=== PATIENT | female | born 1960 | race Caucasian/White ===

== ENCOUNTER 2017-07-28 15:41 | Observation (INO) | payer MEDICAID ==
[2017-07-28] MEDS ORDERED: Sodium Chloride 0.9% 1,000 ML IV STA ×2 (15:57→18:39)
[2017-07-28] MEDS ORDERED: Albuterol-Ipratrop 3 mg / 0.5 (3 ml) UD IH STA (15:59)
--- NOTE | 2017-07-28 16:01 | ED PDOC ---
Arrival/HPI - General Chief Complaint: Chest Pain Time Seen by Provider: 07/28/17 15:45 Historian: Patient, Family - History of Present Illness Narrative History of Present Illness (Text): 07/28/17 15:53 A 57 year old female, whose past medical history includes HLD and GERD, presents to the emergency department complaining of shortness of breath and chest tightness. Per family member, patient describes chest tightness as heavy. Notes also experiencing fever, chills, and cough 2 days ago. Patient denies any appetite changes or any other complaints at this time. PMD: Dr. Martinez Past Medical History - Provider Review Nursing Documentation Reviewed: Yes - Infectious Disease Hx of Infectious Diseases: None - Reproductive Menopause: Yes - Cardiac Hx Hypertension: Yes - Gastrointestinal Hx Gastroesophageal Reflux: Yes - Psychiatric Hx Substance Use: No - Anesthesia Hx Anesthesia Reactions: No Family/Social History - Physician Review Nursing Documentation Reviewed: Yes Family/Social History: No Known Family HX Smoking Status: Unknown If Ever Smoked Hx Alcohol Use: No Hx Substance Use: No Allergies/Home Meds Allergies/Adverse Reactions: Allergies No Known Allergies Allergy (Verified 12/09/16 13:00) Home Medications: Home Meds Medication Instructions Recorded Confirmed Aspirin [Ecotrin] 81 mg PO DAILY 12/09/16 07/28/17 Gemfibrozil 600 mg PO BID 12/09/16 07/28/17 Pantoprazole [Protonix] 40 mg PO DAILY 12/09/16 07/28/17 hydroCHLOROthiazide [Microzide] 12.5 mg PO DAILY 12/09/16 07/28/17 Cyanocobalamin [Vitamin B12] 1,000 mcg PO BID 07/28/17 07/28/17 Review of Systems - Physician Review All systems were reviewed & negative as marked: Yes - Review of Systems Constitutional: Fevers, Night Sweats Respiratory: SOB, Cough Cardiovascular: Other (chest tightness) Gastrointestinal: absent: Appetite Changes Physical Exam Vital Signs Reviewed: Yes Vital Signs Temp Pulse Resp BP Pulse Ox 07/28/17 17:58 99 H 16 126/82 100 07/28/17 15:58 98.2 F 110 H 16 139/91 H 100 Temperature: Afebrile Blood Pressure: Normal Pulse: Regular Respiratory Rate: Normal Appearance: Positive for: Well-Appearing Pain Distress: None Mental Status: Positive for: Alert and Oriented X 3 - Systems Exam Head: Present: Atraumatic, Normocephalic Pupils: Present: PERRL Extroacular Muscles: Present: EOMI Conjunctiva: Present: Normal Mouth: Present: Moist Mucous Membranes Neck: Present: Normal Range of Motion Respiratory/Chest: Present: Clear to Auscultation, Good Air Exchange. No: Respiratory Distress, Accessory Muscle Use Cardiovascular: Present: Regular Rate and Rhythm, Normal S1, S2. No: Murmurs Abdomen: Present: Normal Bowel Sounds. No: Tenderness, Distention, Peritoneal Signs Back: Present: Normal Inspection Upper Extremity: Present: Normal Inspection. No: Cyanosis, Edema Lower Extremity: Present: Normal Inspection. No: Edema Neurological: Present: GCS=15, CN II-XII Intact, Speech Normal Skin: Present: Warm, Dry, Normal Color. No: Rashes Psychiatric: Present: Alert, Oriented x 3, Normal Insight, Normal Concentration Medical Decision Making ED Course and Treatment: 07/28/17 15:57 Impression: 57 year old female with shortness of breath and chest tightness. No acute findings on physical examination. Plan: -- EKG -- Chest X-Ray -- Angio Chest CT -- Labs -- Blood Culture -- Urine Culture -- IV Fluids -- Venous Blood Gas -- Rapid Flu Test -- Urinalysis -- Reassess and disposition Progress Notes: EKG: Ordered, reviewed, and independently interpreted the EKG. Rate : 126 BPM Rhythm : Sinus tachycardia Interpretation : Possible left atrial enlargement. Comparison : No previous EKG for comparison. 07/28/2017 16:15 Chest X-Ray IMPRESSION: No active pulmonary disease. Dictator: Brianna Angel MD 07/28/2017 20:[address] IMPRESSION: No anuerysm, dissection or central pulmonary embolus, limited evaluation of peripheral vessels due to patient motion, no large peripheral pulmonary emboli; groundglass opacities at the lung bases atelectasis versus infiltrate. Dictator: Kacy Ledbetter MD - Lab Interpretations Lab Results: 07/28/17 15:58 07/28/17 15:55 Lab Results 07/28/17 20:31: Urine Color Light yellow, Urine Appearance Clear, Urine pH 7.0, Ur Specific [place] 1.010, Urine Protein Negative, Urine Glucose (UA) Negative, Urine Ketones Negative, Urine Blood Negative, Urine Nitrate Negative, Urine Bilirubin Negative, Urine Urobilinogen 0.2, Ur Leukocyte Esterase Negative 07/28/17 15:58: pO2 77 H, VBG pH 7.36, VBG pCO2 43.0, VBG HCO3 24.3, VBG Total CO2 25.6, VBG O2 Sat (Calc) 97.3 H, VBG Base Excess -1.3 L, VBG Potassium 3.9, Glucose 112 H, Lactate 1.9, FiO2 21.0, Sodium 145.0, Chloride 113.0 H, Venous Blood Potassium 3.9 07/28/17 15:58: Influenza Typ A,B (EIA) Negative for flu a/b 07/28/17 15:58: WBC 6.2, RBC 4.66, Hgb 12.0, Hct 37.6, MCV 80.7, MCH 25.8, MCHC 31.9, RDW 14.8 H, Plt Count 265, MPV 11.2 H, Gran % 51.0, Lymph % (Auto) 43.1 H , [place] % (Auto) 5.2, Eos % (Auto) 0.5 L, Baso % (Auto) 0.2, Gran # 3.17, Lymph # 2.7, [place] # 0.3, Eos # 0.0, Baso # 0.01 07/28/17 15:55: Sodium 146, Potassium 4.1, Chloride 109 H, Carbon Dioxide 22, Anion Gap 19, BUN 9, Creatinine 0.7, Est GFR ( Amer) > 60, Est GFR (Non- Af Amer) > 60, Random Glucose 109, Calcium 11.0 H, Total Bilirubin 0.8, AST 39 H , ALT 37, Alkaline Phosphatase 100, Lactate Dehydrogenase 572, Total Creatine Kinase 79, Troponin I < 0.01, NT-Pro-B Natriuret Pep 126, Total Protein 8.8 H, Albumin 4.9 H, Globulin 3.9, Albumin/Globulin Ratio 1.2 07/28/17 15:55: PT 11.7, INR 1.03 I have reviewed the lab results: Yes - RAD Interpretation Radiology Orders: 07/28/17 15:58 CXR [CHEST PORTABLE] [RAD] Stat 07/28/17 18:29 ANGIO CHEST PE PROTOCOL [CT] Stat - Medication Orders Current Medication Orders: Discontinued Medications Albuterol/Ipratropium (Duoneb 3 Mg/0.5 Mg (3 Ml) Ud) 3 ml IH STAT STA Stop: 07/28/17 16:00 Last Admin: 07/28/17 16:32 Dose: 3 ml Sodium Chloride (Sodium Chloride 0.9%) 1,000 mls @ 999 mls/hr IV .Q1H1M STA Stop: 07/28/17 16:57 Last Admin: 07/28/17 16:07 Dose: 999 mls/hr eMAR Start Stop Document 07/28/17 16:07 SE (Rec: 07/28/17 16:07 SE [id number]) Intravenous Solution Start Date 07/28/17 Start Time 16:07 Sodium Chloride (Sodium Chloride 0.9%) 1,000 mls @ 999 mls/hr IV .Q1H1M STA Stop: 07/28/17 19:39 Last Admin: 07/28/17 18:40 Dose: 999 mls/hr eMAR Start Stop Document 07/28/17 18:40 SE (Rec: 07/28/17 18:40 SE [id number]) Intravenous Solution Start Date 07/28/17 Start Time 18:40 - 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 - Scribe Statement The provider has reviewed the documentation as recorded by the Ronald Rosales Provider Scribe Attestation: All medical record entries made by the Scribe were at my direction and personally dictated by me. I have reviewed the chart and agree that the record accurately reflects my personal performance of the history, physical exam, medical decision making, and the department course for this patient. I have also personally directed, reviewed, and agree with the discharge instructions and disposition. Disposition/Present on Arrival - Present on Arrival Any Indicators Present on Arrival: No History of DVT/PE: No History of Uncontrolled Diabetes: No Urinary Catheter: No History of Decub. Ulcer: No History Surgical Site Infection Following: None - Disposition Have Diagnosis and Disposition been Completed?: Yes Diagnosis: Tachycardia, Chest pain Disposition Time: 22:23 Patient Plan: Discharge Condition: GOOD Discharge Instructions (ExitCare): Chest Pain (ED) Referrals: Rachell Martinez MD [Primary Care Provider] - Follow up with primary Forms: [employer] (E[place]ian)
[2017-07-28 16:02] VITALS: BMI 28.3
--- NOTE | 2017-07-28 16:16 | RAD ---
HISTORY: Chest Heaviness COMPARISON: No prior. FINDINGS: LUNGS: The lungs are well inflated and clear. PLEURA: No significant pleural effusion identified, no pneumothorax apparent. CARDIOVASCULAR: Normal. OSSEOUS STRUCTURES: No significant abnormalities. VISUALIZED UPPER ABDOMEN: Normal. OTHER FINDINGS: None. IMPRESSION: No active pulmonary disease.
[2017-07-28 16:23] LABS: VENOUS BLOOD GAS BASE EXCESS -1.3 mmol/L (0.0-2.0); VENOUS BLOOD GAS PO2 77 mm/Hg (30-55); VENOUS BLOOD PH 7.36 (7.32-7.43)
[2017-07-28 16:35] LABS: ALB/GLOB RATIO 1.2 (1.1-1.8); ALBUMIN 4.9 g/dL (3.0-4.8); ALT/SGPT 37 U/L (7-56); AST/SGOT 39 U/L (14-36); BLOOD UREA NITROGEN 9 mg/dL (7-21); GFR AFRICAN-AMERICAN > 60; GFR NON-AFRICAN AMERICAN > 60
[2017-07-28 16:47] LABS: B-TYPE NATRIURETIC PEPTIDE 126 pg/mL (0-450); TROPONIN I < 0.01 ng/mL
[2017-07-28 16:52] LABS: INR 1.03 (0.93-1.08); PROTHROMBIN TIME 11.7 SECONDS (9.4-12.5)
[2017-07-28 16:52] LABS: BASO # 0.01 K/mm3 (0.0-2.0); BASO % 0.2 % (0.0-3.0); EOS % 0.5 % (1.5-5.0); GRAN # 3.17 (1.4-6.5); LYMPH # 2.7 (1.2-3.4); LYMPH % 43.1 % (22.0-35.0); MEAN CELL VOLUME 80.7 fl (80.0-105.0); MEAN CORPUSCULAR HEMOGLOBIN 25.8 pg (25.0-35.0); MEAN CORPUSCULAR HGB CONC 31.9 g/dl (31.0-37.0); MEAN PLATELET VOLUME 11.2 fl (7.0-11.0); MONO # 0.3 (0.1-0.6); MONO % 5.2 % (1.0-6.0); RBC 4.66 10^6/uL (3.5-6.1); RED CELL DISTRIBUTION WIDTH 14.8 % (11.5-14.5); WHITE BLOOD COUNT 6.2 10^3/ul (4.5-11.0)
[2017-07-28] MEDS ORDERED: Iohexol 350 MG/100 ML VIAL ONE (19:01)
--- NOTE | 2017-07-28 20:22 | CT ---
EXAM: CT Angiography Chest With Intravenous Contrast EXAM DATE/TIME: 07/28/2017 6:29 PM CLINICAL HISTORY: 57 years old, female; Signs and symptoms; Shortness of breath; Additional info: Possible pe TECHNIQUE: Axial computed tomographic angiography images of the chest with intravenous contrast using pulmonary embolism protocol. All CT scans at this facility use one or more dose reduction techniques, viz.: automated exposure control; ma/kV adjustment per patient size (including targeted exams where dose is matched to indication; i.e. head); or iterative reconstruction technique. MIP reconstructed images were created and reviewed. Coronal and sagittal reformatted images were created and reviewed. CONTRAST: 60 mL of OMNI administered intravenously. COMPARISON: DX - CHEST PORTABLE 2017-07-28 16:03 FINDINGS: Artifacts: Motion artifact degrades image quality. Heart, aorta and Pulmonary arteries: Heart size is normal. There are coronary artery calcifications There is no pericardial effusion.There is no aneurysm or dissection.There are vascular calcifications. There are no central pulmonary emboli. Patient motion limits evaluation of peripheral pulmonary arteries. There are no large peripheral pulmonary emboli. Lungs and pleural spaces: Trachea and main bronchi are patent.There is no pneumothorax. There is apical scarring. There asymmetric groundglass opacities in both lung bases. There is linear scarring and atelectasis at the lung bases. There is no lobar or segmental consolidation. There are no effusions. Mediastinum: Esophagus is unremarkable. There is a small hiatal hernia. There are no pathologically enlarged mediastinal or hilar nodes. Thyroid: Thyroid is unremarkable Bones/joints: There are degenerative changes in the osseus structures. Soft tissues: unremarkable Upper abdomen: There are no acute abnormalities in the visualized portion of the abdomen. The gallbladder is absent IMPRESSION: No aneurysm, dissection or central pulmonary embolus, limited evaluation of peripheral vessels due to patient motion, no large peripheral pulmonary emboli; groundglass opacities at the lung bases atelectasis versus infiltrate Additional nonemergent findings as described above.
[2017-07-28 20:42] LABS: URINE BILIRUBIN NEGATIVE (NEGATIVE); URINE BLOOD NEGATIVE (NEGATIVE); URINE GLUCOSE (UA) NEGATIVE (NEGATIVE); URINE LEUKOCYTE ESTERASE NEGATIVE Leu/uL (NEGATIVE); URINE NITRATE NEGATIVE (NEGATIVE); URINE PROTEIN NEGATIVE mg/dL (<30 mg/dL); URINE UROBILINOGEN 0.2 E.U./dL (<1 E.U./dL)
[2017-07-28 20:45] LABS: URINE APPEARANCE CLEAR (CLEAR); URINE COLOR LIGHT YELLOW (YELLOW)
[2017-07-28] MEDS ORDERED: Morphine 2 mg/ml ISec IVP PRN (22:31)
--- NOTE | 2017-07-28 22:34 | CP.PCM.HP ---
<Evelin Vela - Last Filed: 07/28/17 23:14> History of Present Illness - History of Present Illness History of Present Illness: IM resident note for Dr Chow. CC: chest pressure. Patient is a 57 y/o female with PMHx of dyslipidemia, and GERD presenting with 1 week of pressure like intermittent chest pain. Patient states the chest pain lasts few minutes when its there, non radiating to the neck or back. States her left arm feels numb. The chest pressure is not provoked or alleviated by any position or activity. Patient called her PMD Dr. Martinez whom told her to come to the ED. In addition, patient states 10 days ago she experienced flu like symptoms, along with fever, diarrhea, and vomiting, however these symptoms have resolved. Last diarrhea and vomiting was 10 days ago. Currently admits to chills. In the ED patient was tachy in the 130s, CTA was obtained with no PE. Patient also had basic labs significant only for hypercalcemia. PMHx: dyslipidemia, and gerd PSHx: denies FMHx: brother with heart problems and DM, 70 y/o, mom had CHF. Social: Denies alcohol, tobacco and illicit drug use. Allergy: NKDA Home meds: ASA 81 mg, protonix 40 mg, gemfibrozil 600 mg po bid. Present on Admission - Present on Admission Any Indicators Present on Admission: No History of DVT/PE: No History of Uncontrolled Diabetes: No Urinary Catheter: No Decubitus Ulcer Present: No Review of Systems - Constitutional Constitutional: Chills. absent: Fever, Headache, Malaise, Night Sweats, Weakness - EENT Eyes: absent: Blurred Vision Ears: absent: Dizziness Nose/Mouth/Throat: absent: Nasal Congestion, Nasal Discharge, Sinus Pain - Cardiovascular Cardiovascular: Chest Pain, Chest Pain at Rest, Chest Pain with Activity, Radiating Pain, Rapid Heart Rate. absent: Claudication, Diaphoresis, Dyspnea, Dyspnea on Exertion, Edema, Irregular Heart Rhythm, Lightheadedness, Syncope - Respiratory Respiratory: absent: Cough, Dyspnea, Hemoptysis, Wheezing, Snoring, Stridor - Gastrointestinal Gastrointestinal: absent: Abdominal Pain, Belching, Bloating, Melena, Nausea, Temesmus, Vomiting - Genitourinary Genitourinary: absent: Dysuria - Musculoskeletal Musculoskeletal: absent: Arthralgias, Atrophy, Back Pain - Integumentary Integumentary: absent: Dry Skin - Neurological Neurological: absent: Confusion, Disequilibrium, Dizziness, Focal Weakness, Headaches, Weakness - Psychiatric Psychiatric: absent: Anxiety, Depression - Endocrine Endocrine: Palpitations. absent: Fatigue - Hematologic/Lymphatic Hematologic: absent: Lymphadenopathy Past Patient History - Infectious Disease Hx of Infectious Diseases: None - Tetanus Immunizations Tetanus Immunization: Unknown - Past Social History Smoking Status: Never Smoked Alcohol: None Drugs: Denies Home Situation {Lives}: With Family - CARDIAC Hx Hypertension: Yes - GASTROINTESTINAL Hx Gastroesophageal Reflux: Yes - PSYCHIATRIC Hx Substance Use: No - ANESTHESIA Hx Anesthesia Reactions: No Meds Allergies/Adverse Reactions: Allergies Allergy/AdvReac Type Severity Reaction Status Date / Time No Known Allergies Allergy Verified 12/09/16 13:00 Physical Exam - Constitutional Appears: No Acute Distress - Head Exam Head Exam: ATRAUMATIC, NORMAL INSPECTION, NORMOCEPHALIC - Eye Exam Eye Exam: EOMI, Normal appearance, PERRL. absent: Scleral icterus - ENT Exam ENT Exam: Mucous Membranes Moist - Neck Exam Neck exam: Positive for: Full Rom, Normal Inspection. Negative for: Lymphadenopathy, Tenderness - Respiratory Exam Respiratory Exam: Clear to Auscultation Bilateral, NORMAL BREATHING PATTERN. absent: Accessory Muscle Use, Chest Wall Tenderness, Decreased Breath Sounds, Prolonged Expiratory Phase, Rales, Rhonchi, Wheezes, Respiratory Distress, Stridor - Cardiovascular Exam Cardiovascular Exam: Tachycardia, REGULAR RHYTHM, RRR, +S1, +S2. absent: JVD, Rubs, Systolic Murmur - GI/Abdominal Exam GI & Abdominal Exam: Normal Bowel Sounds, Soft. absent: Diminished Bowel Sounds , Distended, Firm, Guarding, Hyperactive Bowel Sounds, Hypoactive Bowel Sounds, Mass, Organomegaly, Pulsatile Mass, Rigid, Tenderness - Extremities Exam Extremities exam: Positive for: normal inspection. Negative for: pedal edema, tenderness - Back Exam Back exam: NORMAL INSPECTION. absent: tenderness, vertebral tenderness - Neurological Exam Neurological exam: Alert, Oriented x3 - Psychiatric Exam Psychiatric exam: Normal Affect, Normal Mood - Skin Skin Exam: Dry, Intact, Normal Color, Warm Results - Vital Signs Recent Vital Signs: Last Vital Signs Temp 98.2 F 07/28/17 15:58 Pulse 102 H 07/28/17 22:32 Resp 18 07/28/17 22:32 BP 144/91 H 07/28/17 22:32 Pulse Ox 98 07/28/17 22:32 - Labs Result Diagrams: 07/28/17 15:58 07/28/17 15:55 - EKG Data EKG Interpreted by: Myself EKG shows normal: Sinus rhythm, [place] (normal ), Intervals (normal ), QRS complexes (normal ), ST-T waves (non specific changes ) Rate: Tachycardia Assessment & Plan - Assessment and Plan (Free Text) Assessment: Patient is a 57 y/o female with PMHx of dyslipidemia, and GERD presenting with 1 week of pressure like intermittent chest pain, with left hand numbness. Plan: 1) Chest pain r/o ACS - Patient with strong family history, and clinical presentation - Admit to tele for obs - trop x1 negative, will continue to trend - EKG with sinus tachycardia, non specific ST/T waves changes - Continue with asa 81 mg - will obtain lipid panel - Lipitor 20 mg daily - Tylenol prn for mild pain and morphine 2 q4 prn for severe pain. 2) Sinus tachycardia- - s/p CTA with no pe - s/p 2 litters of ivf bolus - continue with NS@ 125 cc/hr - Will obtain tsh. - Lopressor 25 mg po bid - BP stable, will continue to monitor 3) Hypercalcemia- with differentials including hctz side effect ( patient was on this for htn, recently discontinued by pmd), versus thyrotoxicosis in the setting of sinus tachycardia, versus adrenal insufficiency, versus primary hyperparathyroidism, versus malignancy, or hypervitaminosis D versus multiple myeloma in the setting of elevated total protein. - Will give iv hydration - and repeat lab in the am, if calcium remains elevated, will pursue further work up. - Sending TSH for now. 3) Dyslipidemia- fasting lipid panel - hold home dose gemfibrozil. - Started on low dose Lipitor 5) Gerd- continue with home dose protonix 6) DVT prophylaxis: SCDs. Patient seen, examined and case discussed with Dr Chow. - Date & Time Date: 07/28/17 Time: 11:05 <Rishi Chow - Last Filed: 07/29/17 06:12> Results - Vital Signs Recent Vital Signs: Last Vital Signs Temp 98.4 F 07/29/17 06:00 Pulse 66 07/29/17 06:00 Resp 20 07/29/17 06:00 BP 130/87 07/29/17 06:00 Pulse Ox 100 07/29/17 06:00 - Labs Result Diagrams: 07/28/17 15:58 07/28/17 15:55 Labs: Laboratory Results - last 24 hr 07/28/17 07/28/17 22:50 23:45 Troponin I < 0.01 TSH 3rd Generation 1.74 Attending/Attestation - Attestation I have personally seen and examined this patient.: Yes I have fully participated in the care of the patient.: Yes I have reviewed all pertinent clinical information: Yes
[2017-07-28] MEDS: Sodium Chloride 0.9% 1,000 ML IV SCH (22:36)
[2017-07-29 05:07] VITALS: RESP 20; O2SAT 100
[2017-07-29 07:48] LABS: BASO # 0.01 K/mm3 (0.0-2.0); BASO % 0.2 % (0.0-3.0); EOS # 0.1 (0.0-0.7); GRAN # 2.41 (1.4-6.5); GRAN % 48.8 % (50.0-68.0); HEMOGLOBIN 10.5 g/dL (12.0-16.0); LYMPH # 2.1 (1.2-3.4); LYMPH % 41.5 % (22.0-35.0); MEAN CELL VOLUME 81.2 fl (80.0-105.0); MEAN CORPUSCULAR HEMOGLOBIN 25.6 pg (25.0-35.0); MEAN CORPUSCULAR HGB CONC 31.5 g/dl (31.0-37.0); MEAN PLATELET VOLUME 11.4 fl (7.0-11.0); MONO # 0.4 (0.1-0.6); MONO % 7.5 % (1.0-6.0); RBC 4.1 10^6/uL (3.5-6.1); RED CELL DISTRIBUTION WIDTH 14.9 % (11.5-14.5); WHITE BLOOD COUNT 4.9 10^3/ul (4.5-11.0)
[2017-07-29 08:00] LABS: ALB/GLOB RATIO 1.2 (1.1-1.8); ALBUMIN 3.7 g/dL (3.0-4.8); ALT/SGPT 38 U/L (7-56); AST/SGOT 28 U/L (14-36); BLOOD UREA NITROGEN 5 mg/dL (7-21); CALCIUM 9.7 mg/dL (8.4-10.5); GFR AFRICAN-AMERICAN > 60; GFR NON-AFRICAN AMERICAN > 60; HDL CHOLESTEROL 32 mg/dL (29-60)
[2017-07-29 08:05] LABS: TROPONIN I < 0.01 ng/mL
[2017-07-29 08:06] LABS: LDL CHOLESTEROL 61 mg/dL (0-129)
[2017-07-29] MEDS ORDERED: Pantoprazole 40 mg EC Tab PO SCH (10:00)
[2017-07-29 12:06] VITALS: BP 146/92; PULSE 94
[2017-07-29] MEDS: Sodium Chloride 0.9% 1,000 ML IV SCH (12:06)
[2017-07-29 12:39] VITALS: TEMP 98.5
--- NOTE | 2017-07-29 13:38 | CP.PCM.DIS ---
<Luis Williamson - Last Filed: 07/29/17 14:03> Provider - Provider Date of Admission: 07/28/17 22:04 Attending physician: Marion Sparks MD Primary care physician: Rachell Martinez MD Consults: Cardio: Carmela Time Spent in preparation of Discharge (in minutes): 35 Diagnosis - Discharge Diagnosis (1) Chest pain Status: Resolved Priority: High (2) Tachycardia Status: Resolved Priority: High (3) GERD (gastroesophageal reflux disease) Status: Chronic Priority: Medium (4) Dyslipidemia Status: Chronic Priority: Medium Hospital Course - Lab Results Lab Results: Most Recent Lab Values WBC 4.9 10^3/ul (4.5-11.0) D 07/29/17 06:30 RBC 4.10 10^6/uL (3.5-6.1) 07/29/17 06:30 Hgb 10.5 g/dL (12.0-16.0) L 07/29/17 06:30 Hct 33.3 % (36.0-48.0) L 07/29/17 06:30 MCV 81.2 fl (80.0-105.0) 07/29/17 06:30 MCH 25.6 pg (25.0-35.0) 07/29/17 06:30 MCHC 31.5 g/dl (31.0-37.0) 07/29/17 06:30 RDW 14.9 % (11.5-14.5) H 07/29/17 06:30 Plt Count 229 10^3/uL (120.0-450.0) 07/29/17 06:30 MPV 11.4 fl (7.0-11.0) H 07/29/17 06:30 Gran % 48.8 % (50.0-68.0) L 07/29/17 06:30 Lymph % (Auto) 41.5 % (22.0-35.0) H 07/29/17 06:30 [place] % (Auto) 7.5 % (1.0-6.0) H 07/29/17 06:30 Eos % (Auto) 2.0 % (1.5-5.0) 07/29/17 06:30 Baso % (Auto) 0.2 % (0.0-3.0) 07/29/17 06:30 Gran # 2.41 (1.4-6.5) 07/29/17 06:30 Lymph # 2.1 (1.2-3.4) 07/29/17 06:30 [place] # 0.4 (0.1-0.6) 07/29/17 06:30 Eos # 0.1 (0.0-0.7) 07/29/17 06:30 Baso # 0.01 K/mm3 (0.0-2.0) 07/29/17 06:30 PT 11.7 SECONDS (9.4-12.5) 07/28/17 15:55 INR 1.03 (0.93-1.08) 07/28/17 15:55 pO2 77 mm/Hg (30-55) H 07/28/17 15:58 VBG pH 7.36 (7.32-7.43) 07/28/17 15:58 VBG pCO2 43.0 (40-60) 07/28/17 15:58 VBG HCO3 24.3 mmol/l (21-28) 07/28/17 15:58 VBG Total CO2 25.6 mmol.L (22-28) 07/28/17 15:58 VBG O2 Sat (Calc) 97.3 % (40-65) H 07/28/17 15:58 VBG Base Excess -1.3 mmol/L (0.0-2.0) L 07/28/17 15:58 VBG Potassium 3.9 mmol/L (3.6-5.2) 07/28/17 15:58 Sodium 145.0 mmol/L (132-148) 07/28/17 15:58 Chloride 113.0 mmol/L (98-107) H 07/28/17 15:58 Glucose 112 mg/dl (65-105) H 07/28/17 15:58 Lactate 1.9 mmol/L (0.7-2.1) 07/28/17 15:58 FiO2 21.0 % 07/28/17 15:58 Sodium 144 mmol/L (132-148) 07/29/17 06:30 Potassium 4.3 mmol/L (3.6-5.0) 07/29/17 06:30 Chloride 113 mmol/L (98-107) H 07/29/17 06:30 Carbon Dioxide 23 mmol/L (21-33) 07/29/17 06:30 Anion Gap 12 (10-20) 07/29/17 06:30 BUN 5 mg/dL (7-21) L 07/29/17 06:30 Creatinine 0.6 mg/dl (0.7-1.2) L 07/29/17 06:30 Est GFR ( Amer) > 60 07/29/17 06:30 Est GFR (Non-Af Amer) > 60 07/29/17 06:30 Random Glucose 89 mg/dL (70-110) 07/29/17 06:30 Calcium 9.7 mg/dL (8.4-10.5) 07/29/17 06:30 Total Bilirubin 0.7 mg/dL (0.2-1.3) 07/29/17 06:30 AST 28 U/L (14-36) 07/29/17 06:30 ALT 38 U/L (7-56) 07/29/17 06:30 Alkaline Phosphatase 82 U/L (38-126) 07/29/17 06:30 Lactate Dehydrogenase 572 U/L (333-699) 07/28/17 15:55 Total Creatine Kinase 79 U/L (35-230) 07/28/17 15:55 Troponin I < 0.01 ng/mL 07/29/17 06:30 NT-Pro-B Natriuret Pep 126 pg/mL (0-450) 07/28/17 15:55 Total Protein 6.7 g/dL (5.8-8.3) 07/29/17 06:30 Albumin 3.7 g/dL (3.0-4.8) 07/29/17 06:30 Globulin 3.1 gm/dL 07/29/17 06:30 Albumin/Globulin Ratio 1.2 (1.1-1.8) 07/29/17 06:30 Triglycerides 56 mg/dL (35-160) 07/29/17 06:30 Cholesterol 109 mg/dL (130-200) L 07/29/17 06:30 LDL Cholesterol Direct 61 mg/dL (0-129) 07/29/17 06:30 HDL Cholesterol 32 mg/dL (29-60) 07/29/17 06:30 TSH 3rd Generation 1.74 mIU/mL (0.46-4.68) 07/28/17 23:45 Venous Blood Potassium 3.9 mmol/L (3.6-5.2) 07/28/17 15:58 Urine Color Light yellow (YELLOW) 07/28/17 20:31 Urine Appearance Clear (CLEAR) 07/28/17 20:31 Urine pH 7.0 (4.7-8.0) 07/28/17 20:31 Ur Specific [place] 1.010 (1.005-1.035) 07/28/17 20:31 Urine Protein Negative mg/dL (<30 mg/dL) 07/28/17 20:31 Urine Glucose (UA) Negative mg/dL (NEGATIVE) 07/28/17 20:31 Urine Ketones Negative mg/dL (NEGATIVE) 07/28/17 20:31 Urine Blood Negative (NEGATIVE) 07/28/17 20:31 Urine Nitrate Negative (NEGATIVE) 07/28/17 20:31 Urine Bilirubin Negative (NEGATIVE) 07/28/17 20:31 Urine Urobilinogen 0.2 E.U./dL (<1 E.U./dL) 07/28/17 20:31 Ur Leukocyte Esterase Negative [place]/uL (NEGATIVE) 07/28/17 20:31 Influenza Typ A,B (EIA) Negative for flu a/b (NEGATIVE) 07/28/17 15:58 - Hospital Course Hospital Course: This is a 57 yo F with PMH of dyslipidemia, HTN, and GERD who [place] [facility] [place] of chest pressure and intermittent chest pain. Due to chest pain and tachycardia on presentation, there was concern for DVT/PE, but lower extremity duplex and CT angio of the chest were obtained and were both negative. Trops x3 were negative, and repeat EKG in the morning was NSR at 94 bpm with no segment abnormalities. Cardiology also saw the patient, and cleared her for discharge. Of note, the patient also presented with hypercalcemia on admission, but this was resolved on AM labs, and after discussion with patient's daughter, it was revealed that patient had restarted herself on her home HCTZ, even though it had been previously stopped by her PMD. The patient was instructed to stop taking the HCTZ until such time as her home physician restarted it. She was also instructed to follow up with her PMD and a latex dipper within 1 week of discharge, and to resume all other home medications as prescribed. Patient and daughter at bedside expressed understanding and agreement with these instructions. All questions answered to their satisfaction, and then patient was discharged. Patient seen, reviewed, and examined with attending, Dr. Sparks. Discharge Exam - Head Exam Head Exam: ATRAUMATIC, NORMAL INSPECTION, NORMOCEPHALIC - Eye Exam Eye Exam: EOMI, Normal appearance. absent: Conjunctival injection, Scleral icterus Pupil Exam: absent: Irregular, Unequal - ENT Exam ENT Exam: Mucous Membranes Moist - Neck Exam Neck exam: Full Rom, Normal Inspection - Respiratory Exam Respiratory Exam: Clear to PA & Lateral, NORMAL BREATHING PATTERN, UNREMARKABLE. absent: Accessory Muscle Use, Chest Wall Tenderness, Decreased Breath Sounds, Prolonged Expiratory Phase, Rales, Rhonchi, Wheezes, Respiratory Distress - Cardiovascular Exam Cardiovascular Exam: REGULAR RHYTHM, RRR, +S1, +S2. absent: Bradycardia, Tachycardia, Irregular Rhythm, JVD, +S4 - GI/Abdominal Exam GI & Abdominal Exam: Normal Bowel Sounds, Soft. absent: Tenderness - Extremities Exam Extremities exam: normal capillary refill, normal inspection, pedal pulses present - Neurological Exam Neurological exam: Alert Additional comments: awake and alert, moving all extremities spontaneously, following all commands appropriately motor grossly intact and equal bilaterally - Psychiatric Exam Psychiatric exam: Normal Affect, Normal Mood - Skin Skin Exam: Dry, Intact, Normal Color, Warm Discharge Plan - Follow Up Plan Condition: GOOD Disposition: HOME/ ROUTINE Instructions: Chest Pain (DC), Gastroesophageal Reflux Disease (DC), Hyperlipidemia (DC) Additional Instructions: Please resume all home medications and take as prescribed. Please follow up with your Primary Medical Doctor and a T[employer] (referral provided) within 1 week. If you experience worsening or new concerning symptoms, please return to the hospital. Referrals: Rachell Martinez MD [Primary Care Provider] - Leonel Casey MD [Staff Provider] - <Marion Sparks - Last Filed: 07/29/17 18:04> Provider - Provider Date of Admission: 07/28/17 22:04 Attending physician: Marion Sparks MD Primary care physician: Rachell Martinez MD Hospital Course - Lab Results Lab Results: Most Recent Lab Values WBC 4.9 10^3/ul (4.5-11.0) D 07/29/17 06:30 RBC 4.10 10^6/uL (3.5-6.1) 07/29/17 06:30 Hgb 10.5 g/dL (12.0-16.0) L 07/29/17 06:30 Hct 33.3 % (36.0-48.0) L 07/29/17 06:30 MCV 81.2 fl (80.0-105.0) 07/29/17 06:30 MCH 25.6 pg (25.0-35.0) 07/29/17 06:30 MCHC 31.5 g/dl (31.0-37.0) 07/29/17 06:30 RDW 14.9 % (11.5-14.5) H 07/29/17 06:30 Plt Count 229 10^3/uL (120.0-450.0) 07/29/17 06:30 MPV 11.4 fl (7.0-11.0) H 07/29/17 06:30 Gran % 48.8 % (50.0-68.0) L 07/29/17 06:30 Lymph % (Auto) 41.5 % (22.0-35.0) H 07/29/17 06:30 [place] % (Auto) 7.5 % (1.0-6.0) H 07/29/17 06:30 Eos % (Auto) 2.0 % (1.5-5.0) 07/29/17 06:30 Baso % (Auto) 0.2 % (0.0-3.0) 07/29/17 06:30 Gran # 2.41 (1.4-6.5) 07/29/17 06:30 Lymph # 2.1 (1.2-3.4) 07/29/17 06:30 [place] # 0.4 (0.1-0.6) 07/29/17 06:30 Eos # 0.1 (0.0-0.7) 07/29/17 06:30 Baso # 0.01 K/mm3 (0.0-2.0) 07/29/17 06:30 PT 11.7 SECONDS (9.4-12.5) 07/28/17 15:55 INR 1.03 (0.93-1.08) 07/28/17 15:55 pO2 77 mm/Hg (30-55) H 07/28/17 15:58 VBG pH 7.36 (7.32-7.43) 07/28/17 15:58 VBG pCO2 43.0 (40-60) 07/28/17 15:58 VBG HCO3 24.3 mmol/l (21-28) 07/28/17 15:58 VBG Total CO2 25.6 mmol.L (22-28) 07/28/17 15:58 VBG O2 Sat (Calc) 97.3 % (40-65) H 07/28/17 15:58 VBG Base Excess -1.3 mmol/L (0.0-2.0) L 07/28/17 15:58 VBG Potassium 3.9 mmol/L (3.6-5.2) 07/28/17 15:58 Sodium 145.0 mmol/L (132-148) 07/28/17 15:58 Chloride 113.0 mmol/L (98-107) H 07/28/17 15:58 Glucose 112 mg/dl (65-105) H 07/28/17 15:58 Lactate 1.9 mmol/L (0.7-2.1) 07/28/17 15:58 FiO2 21.0 % 07/28/17 15:58 Sodium 144 mmol/L (132-148) 07/29/17 06:30 Potassium 4.3 mmol/L (3.6-5.0) 07/29/17 06:30 Chloride 113 mmol/L (98-107) H 07/29/17 06:30 Carbon Dioxide 23 mmol/L (21-33) 07/29/17 06:30 Anion Gap 12 (10-20) 07/29/17 06:30 BUN 5 mg/dL (7-21) L 07/29/17 06:30 Creatinine 0.6 mg/dl (0.7-1.2) L 07/29/17 06:30 Est GFR ( Amer) > 60 07/29/17 06:30 Est GFR (Non-Af Amer) > 60 07/29/17 06:30 Random Glucose 89 mg/dL (70-110) 07/29/17 06:30 Calcium 9.7 mg/dL (8.4-10.5) 07/29/17 06:30 Total Bilirubin 0.7 mg/dL (0.2-1.3) 07/29/17 06:30 AST 28 U/L (14-36) 07/29/17 06:30 ALT 38 U/L (7-56) 07/29/17 06:30 Alkaline Phosphatase 82 U/L (38-126) 07/29/17 06:30 Lactate Dehydrogenase 572 U/L (333-699) 07/28/17 15:55 Total Creatine Kinase 79 U/L (35-230) 07/28/17 15:55 Troponin I < 0.01 ng/mL 07/29/17 06:30 NT-Pro-B Natriuret Pep 126 pg/mL (0-450) 07/28/17 15:55 Total Protein 6.7 g/dL (5.8-8.3) 07/29/17 06:30 Albumin 3.7 g/dL (3.0-4.8) 07/29/17 06:30 Globulin 3.1 gm/dL 07/29/17 06:30 Albumin/Globulin Ratio 1.2 (1.1-1.8) 07/29/17 06:30 Triglycerides 56 mg/dL (35-160) 07/29/17 06:30 Cholesterol 109 mg/dL (130-200) L 07/29/17 06:30 LDL Cholesterol Direct 61 mg/dL (0-129) 07/29/17 06:30 HDL Cholesterol 32 mg/dL (29-60) 07/29/17 06:30 TSH 3rd Generation 1.74 mIU/mL (0.46-4.68) 07/28/17 23:45 Venous Blood Potassium 3.9 mmol/L (3.6-5.2) 07/28/17 15:58 Urine Color Light yellow (YELLOW) 07/28/17 20:31 Urine Appearance Clear (CLEAR) 07/28/17 20:31 Urine pH 7.0 (4.7-8.0) 07/28/17 20:31 Ur Specific [place] 1.010 (1.005-1.035) 07/28/17 20:31 Urine Protein Negative mg/dL (<30 mg/dL) 07/28/17 20:31 Urine Glucose (UA) Negative mg/dL (NEGATIVE) 07/28/17 20:31 Urine Ketones Negative mg/dL (NEGATIVE) 07/28/17 20:31 Urine Blood Negative (NEGATIVE) 07/28/17 20:31 Urine Nitrate Negative (NEGATIVE) 07/28/17 20:31 Urine Bilirubin Negative (NEGATIVE) 07/28/17 20:31 Urine Urobilinogen 0.2 E.U./dL (<1 E.U./dL) 07/28/17 20:31 Ur Leukocyte Esterase Negative [place]/uL (NEGATIVE) 07/28/17 20:31 Influenza Typ A,B (EIA) Negative for flu a/b (NEGATIVE) 07/28/17 15:58 Attending/Attestation - Attestation I have personally seen and examined this patient.: Yes I have fully participated in the care of the patient.: Yes I have reviewed all pertinent clinical information, including history, physical exam and plan: Yes Notes (Text): 07/29/17 17:59 Patient was seen and examined with certified medical coder. Agreed with assessment and plan. 57 yrs old female with PMH OF dyslipidemia, and GERD was admitted with chest pain, Pain was atypical, EKG was negative for acute ischemia.Patient was monitored in trelmetry.Serial troponins were normal.Patient is pain free, Patient was evaluated by cardiology and was cleared to be discharged.She will need out patient stress test and has been advised to follow up with her PCP and cardiology. Management plan was discussed in detail with patient. Education was provided. 07/29/17 18:03
--- NOTE | 2017-07-29 15:46 | CARD ---
APPROVED REPORT EKG Measurement Heart [id number] <Conclusion> Normal sinus rhythm Normal ECG
--- NOTE | 2017-07-29 16:06 | CARD ---
APPROVED REPORT EKG Measurement Heart [id number] <Conclusion> Sinus tachycardia Possible Left atrial enlargement Septal infarct, age undetermined Abnormal ECG
--- NOTE | 2017-07-29 22:22 | CON ---
DATE: 07/29/2017 HISTORY: The patient is a 57-year-old woman with no previous cardiac history, who presents because her blood pressure machine at home said her heart rate was high. The patient has general malaise as well as symptoms of upper respiratory infection. The patient suffers from hypertension. No diabetes mellitus. No previous cardiac history. No chest pain, no shortness of breath. SOCIAL HISTORY: The patient does not smoke. REVIEW OF SYSTEMS: A 14-point review of systems was reviewed in detail. No cardiac symptomatology is noted. PHYSICAL EXAMINATION: VITAL SIGNS: Blood pressure 130/87, heart rate is in the 60s. NECK: Negative JVD. LUNGS: Without rales. HEART: Reveals S1, S2. EXTREMITIES: Without edema. DIAGNOSTIC DATA: EKG is unremarkable. Hemoglobin is 10.5, white count is normal. BUN and creatinine are unremarkable. Troponins are negative x3. IMPRESSION: 1. Upper respiratory infection. 2. Questionable tachycardia in the past. 3. History of gastroesophageal reflux disease. 4. No evidence for acute coronary syndrome. Given these findings, there is no evidence for acute coronary syndrome. Her symptoms are predominantly from a probable viral upper respiratory infection. We will discontinue telemetry today. In the morning, we will transfer the care back to Dr. Casey. Ashish Stevens MD
--- NOTE | 2017-07-31 08:59 | US ---
HISTORY: Leg pain and swelling. Evaluate for DVT PHYSICIAN(S): Ashish Rosas MD. TECHNIQUE: Duplex sonography and color-flow Doppler with graded compression were used to evaluate the deep venous systems of both lower extremities. FINDINGS: The visualized deep venous systems of both lower extremities are sonographically normal and compressible. Normal wave forms and augmentation are seen. There is no sonographic evidence for deep venous thrombosis in the visualized segments of both lower extremities. IMPRESSION: No sonographic evidence for deep venous thrombosis in the visualized segments of both lower extremities.
== END 2017-07-29 16:29 | disposition home or self-care (01) ==
LOC: ED 15:41 → ERH 22:04 → 2RSO 23:44
PROVIDERS: ADMIT Internal Medicine; ATTEND Internal Medicine
DX: R07.89 Other chest pain (principal); J06.9 Acute upper respiratory infection, unspecified; K21.9 Gastro-esophageal reflux disease without esophagitis; E83.52 Hypercalcemia; E78.5 Hyperlipidemia, unspecified; R00.0 Tachycardia, unspecified; I10 Essential (primary) hypertension; R40.2412 Glasgow coma scale score 13-15, at arrival to emergency department; Z79.82 Long term (current) use of aspirin; Z82.49 Family history of ischemic heart disease and other diseases of the circulatory system; Z83.3 Family history of diabetes mellitus
CPT/HCPCS: 36415; 71045; 71275; 80053; 80061; 81003; 82550; 82803; 83615; 83880; 84443; 84484; 85025; 85610; 87040; 87086; 87804; 93005; 93970; 99285; G0378; J7040; Q9967

== ENCOUNTER 2018-08-22 08:02 | Outpatient (CLI) | payer MEDICAID | END 2018-08-22 08:03 | disposition home or self-care (01) | LOC: RAD 08:02 ==